=== PATIENT | female | born 1955 | race Caucasian/White ===

== ENCOUNTER → 2016-11-06 | Outpatient (CLI) | payer OTHER ==
[~2016-11-06] MED LIST: DOCUSATE SODIU100 MG PO; ERGOCALCIF50000 UNIT PO; RENAL-VITE TAB0.8 MG PO
== END | disposition home or self-care (01) ==
LOC: AMB 08:26
PROC: 02PYX3Z Removal of Infusion Device from Great Vessel, External Approach (ICD-10-PCS; principal; 2016-11-06)
DX: Z45.2 Encounter for adjustment and management of vascular access device (principal)